=== PATIENT | female | born 1970 | race Caucasian/White ===

== ENCOUNTER 2016-10-10 09:55 | Emergency (ER) | payer MEDICAID ==
[~2016-10-10] VITALS: Ht 160 cm; Wt 81.6 kg
[~2016-10-10 09:55] MED LIST: PRILOSEC40 MG PO; PROZAC40 MG PO
[2016-10-10 10:04] VITALS: BP_SYST 162; BP_SYST 262; BP_DIAS 90
[2016-10-10] MEDS ORDERED: NEURONTIN400 MG PO (10:07)
[2016-10-10] MEDS ORDERED: BUSPAR5 MG PO (10:07)
--- NOTE | 2016-10-10 10:08 | NUR ---
Patient ambulated to bed 04.
--- NOTE | 2016-10-10 10:13 | NUR ---
PATIENT PRESENTS TO ED DUE TO GEN WEAKNESS X2 DAYS WITH LEFT FLANK PAIN RADIATING UP TO LEFT SHOULDER . PT STATES IM NOT READY TO GIVE URINE AT THIS TIME, DENIES DIARRHEA BUT WITH NAUSEA ; SKIN IS PINK/WARM/DRY; AAOX4 WITH EVEN AND STEADY GAIT; LUNGS CLEAR BL; HR EVEN AND REGULAR; PT DENIES ANY FEVER, CP, SOB, OR COUGH AT THIS TIME; PATIENT STATES PAIN OF 7/10 LEFT FLANK,AT THIS TIME; PATIENT POSITIONED FOR COMFORT; HOB ELEVATED; BEDRAILS UP X2; BED DOWN. ER MD MADE AWARE OF PT STATUS.
--- NOTE | 2016-10-10 10:36 | NUR ---
Dr. García evaluating patient at bedside.
[2016-10-10] MEDS ORDERED: KETOROLAC 30 MG/ML VIAL IVP ONE (10:40)
[2016-10-10] MEDS ORDERED: NACL 0.9% 1,000 ML IV ONE (10:40)
[2016-10-10] MEDS ORDERED: ONDANSETRON 4 MG/2 ML VIAL IVP ONE (10:40)
--- NOTE | 2016-10-10 11:03 | NUR ---
PT FOR XRAY VIA WHEELCHAIR, PT AAO.
--- NOTE | 2016-10-10 11:20 | NUR ---
DR. MINAYA AWARE OF THE RESULT OF URINE DIPSTICK AND PREG
[2016-10-10] MEDS ORDERED: ACETAMINOPHEN EXTRA STRENGTH 500 MG TAB PO ONE (12:35)
[2016-10-10 13:21] VITALS: BP 125/86
--- NOTE | 2016-10-10 13:22 | NUR ---
Patient discharged with v/s stable. Written and verbal after care instructions given and explained. Patient alert, oriented and verbalized understanding of instructions. Ambulatory with steady gait. All questions addressed prior to discharge. ID band removed. Patient advised to follow up with PMD. Rx of ,TRAMADOL,ZOFRAN given. Patient educated on indication of medication including possible reaction and side effects. Opportunity to ask questions provided and answered.PT VERBALIED I FEEL BETTER NOW
== END 2016-10-10 13:22 | disposition home or self-care (01) ==
LOC: MED 09:55
DX: K56.7 Ileus, unspecified (principal); R03.0 Elevated blood-pressure reading, without diagnosis of hypertension; K21.9 Gastro-esophageal reflux disease without esophagitis
CPT/HCPCS: 36415; 74022; 80053; 81003; 81025; 85025; 85610; 85730; 96361; 96374; 96375; 99285; J1885; J2405; J7030